=== PATIENT | female | born 1960 | race African-American/Black ===

== ENCOUNTER 2021-12-13 14:29 | Emergency (ER) | payer OTHER ==
[~2021-12-13] VITALS: Ht 170.2 cm; Wt 100.0 kg
[2021-12-13 14:45] VITALS: BP 155/94
[2021-12-13 16:13] LABS: CLARITY,URINE CLEAR (Clear); GLUCOSE, URINE NEGATIVE (Neg); KETONES,URINE NEGATIVE (Neg); LEUKOCYTE ESTERASE ,URINE NEGATIVE (Neg); NITRITES, URINE NEGATIVE (Neg); OCCULT BLOOD,URINE NEGATIVE (Neg); PROTEIN,URINE NEGATIVE (Neg); UROBILINOGEN,URINE 0.2 E.U/dL (0.2-1.0)
[2021-12-13 16:14] LABS: COLOR,URINE STRAW (Yellow); UA COLLECTION TYPE CLN CATCH MIDSTREAM
[2021-12-13] MEDS ORDERED: cephalexin 500mg capsule PO ONE (16:35)
[2021-12-13] MEDS ORDERED: CEPH500C81 PO (16:38)
--- NOTE | 2021-12-13 16:39 | NUR ---
po med given
== END 2021-12-13 16:45 | disposition home or self-care (01) ==
LOC: ER 14:29
DX: N39.0 Urinary tract infection, site not specified (principal); J06.9 Acute upper respiratory infection, unspecified; R30.0 Dysuria
CPT/HCPCS: 81003; 99283